=== PATIENT | female | born 1970 | race Caucasian/White ===

== ENCOUNTER 2018-04-16 11:07 | Inpatient (IN) | payer BC, OTHER ==
[2018-04-16 11:52] LABS: ADD MAN DIFF? NO
[2018-04-16 11:53] LABS: WHITE BLOOD COUNT 10.5 10^3/ul (4.8-10.8)
[2018-04-16 11:53] LABS: BASOPHILS % 0.3 % (0.0-2.0); EOSINOPHILS % 0.1 % (0.0-7.0); HEMATOCRIT 23.1 % (37.0-47.0); LYMPHOCYTES % 19.2 % (15.0-51.0); MEAN CORPUSCULAR HEMOGLOBIN 30.3 pg (29.0-33.0); MEAN CORPUSCULAR HGB CONC 34.6 g/dl (32.0-37.0); MEAN CORPUSCULAR VOLUME 87.5 fl (82.0-101.0); MEAN PLATELET VOLUME 9.3 fl (7.4-10.4); MONOCYTE # 0.4 10^3/ul (0.3-0.9); NEUTROPHIL # 7.9 10^3/ul (1.6-7.5); NEUTROPHILS % 75.3 % (39.0-77.0); PLATELET COUNT 405 10^3/UL (140-415); RED BLOOD COUNT 2.64 10^6/ul (4.20-5.40); RED CELL DISTRIBUTION WIDTH 11.9 % (11.5-14.5)
[2018-04-16 12:12] LABS: INR 1.01; PROTIME 13.4 Sec (11.9-14.9)
[2018-04-16 12:14] LABS: ANION GAP 8 (5-13); BLOOD UREA NITROGEN 28 mg/dl (7-20); CARBON DIOXIDE 25 mmol/L (21-31); CHLORIDE 100 mmol/L (97-110); CREATININE 0.53 mg/dl (0.44-1.00); Estimated GFR > 60 mL/min (>60); GLUCOSE 177 mg/dl (70-220); POTASSIUM 3.3 mmol/L (3.5-5.1); SODIUM 133 mmol/L (135-144)
[2018-04-16 12:26] LABS: TROPONIN-I < 0.012 ng/ml (0.000-0.120)
[2018-04-16 12:44] LABS: OCCULT BLOOD STOOL POSITIVE (NEGATIVE)
[2018-04-16 12:51] LABS: LIPASE 55 U/L (23-300)
[2018-04-16 13:11] LABS: ALANINE AMINOTRANSFERASE 25 IU/L (13-69); ALKALINE PHOSPHATASE 66 IU/L (42-121); ASPARTATE AMINO TRANSFERASE 17 IU/L (15-46); TOTAL PROTEIN 5.5 g/dl (6.1-8.1)
[2018-04-16] MEDS ORDERED: ONDANSETRON 4 MG INJ IV (13:30)
[2018-04-16] MEDS ORDERED: NACL 0.9% 3 ML SYG IV (15:30)
[2018-04-16] MEDS ORDERED: HYDROCODONE/APAP (5/325) TAB PO (15:30)
[2018-04-16] MEDS: PANTOPRAZOLE 40 MG INJ IV (16:18)
[2018-04-16 16:55] LABS: HEMATOCRIT 22.6 % (37.0-47.0); HEMOGLOBIN 7.8 g/dl (12.0-16.0)
[2018-04-16 17:16] LABS: IRON 32 ug/dl (35-150)
[2018-04-16 17:25] LABS: % IRON SATURATION 10 % SAT (22-52); TOTAL IRON BINDING CAPACITY 317 ug/dl (241-421)
[2018-04-16 17:51] LABS: FERRITIN 32.3 ng/ml (11.1-264.0)
[2018-04-16] MEDS: ACETAMINOPHEN 325 MG TAB PO (20:11)
[2018-04-17] MEDS: PANTOPRAZOLE 40 MG INJ IV ×2 (06:00→17:51)
[2018-04-17 06:08] LABS: ADD MAN DIFF? NO
[2018-04-17 06:18] LABS: BASOPHILS % 0.5 % (0.0-2.0); EOSINOPHILS % 0.3 % (0.0-7.0); HEMATOCRIT 20.2 % (37.0-47.0); LYMPHOCYTES # 2.3 10^3/ul (0.8-2.9); LYMPHOCYTES % 31.2 % (15.0-51.0); MEAN CORPUSCULAR HEMOGLOBIN 30.2 pg (29.0-33.0); MEAN CORPUSCULAR HGB CONC 34.7 g/dl (32.0-37.0); MEAN CORPUSCULAR VOLUME 87.1 fl (82.0-101.0); MEAN PLATELET VOLUME 9.7 fl (7.4-10.4); MONOCYTE # 0.4 10^3/ul (0.3-0.9); MONOCYTES % 5.9 % (0.0-11.0); NEUTROPHIL # 4.5 10^3/ul (1.6-7.5); NEUTROPHILS % 60.9 % (39.0-77.0); PLATELET COUNT 334 10^3/UL (140-415); RED BLOOD COUNT 2.32 10^6/ul (4.20-5.40); RED CELL DISTRIBUTION WIDTH 11.9 % (11.5-14.5)
[2018-04-17 06:18] LABS: WHITE BLOOD COUNT 7.4 10^3/ul (4.8-10.8)
[2018-04-17 06:54] LABS: ANION GAP 6 (5-13); BLOOD UREA NITROGEN 13 mg/dl (7-20); CALCIUM 8.7 mg/dl (8.4-10.2); CARBON DIOXIDE 28 mmol/L (21-31); CHLORIDE 102 mmol/L (97-110); CREATININE 0.58 mg/dl (0.44-1.00); Estimated GFR > 60 mL/min (>60); GLUCOSE 107 mg/dl (70-220); POTASSIUM 4.2 mmol/L (3.5-5.1); SODIUM 136 mmol/L (135-144)
[2018-04-17 06:54] LABS: C-REACTIVE PROTEIN 1.4 mg/dl (0.0-0.9)
[2018-04-17 07:05] LABS: HEMOGLOBIN A1C 5.8 % (0-5.9)
[2018-04-17 08:03] LABS: ERYTHROCYTE SEDIMENTATION RATE 29 mm/Hr (0-30)
[2018-04-17] MEDS ORDERED: EPHEDrine SULFATE 50 MG/5 ML SYG IV (13:00)
[2018-04-17] MEDS ORDERED: hydrALAzine 20 MG INJ IV (13:00)
[2018-04-17] MEDS ORDERED: FENTAnyl 50 MCG/ML VIAL IV (13:00)
[2018-04-17] MEDS ORDERED: LABETALOL HCL 20MG INJ IV (13:00)
[2018-04-17] MEDS: SOD FERRIC GLUC COMPLX 125 MG in SOD CHLORIDE 0.9% 100 ML IVPB (14:37)
[2018-04-17] MEDS: SUCRALFATE (100 MG/ML) 10ML CUP PO ×3 (14:38→20:53)
[2018-04-17] MEDS: PROPOFOL 20 ML (15:28)
[2018-04-17] MEDS: BARIUM SULF 2% 450 ML BTL (BERRY SMOOTHIE) PO (17:59)
[2018-04-17] MEDS: SOD CHLORIDE 0.9% 100 ML (20:30)
[2018-04-17] MEDS: IOHEXOL 300MG/ML 150 ML BTL (20:30)
[2018-04-18] MEDS: PANTOPRAZOLE 40 MG INJ IV ×2 (06:30→17:46)
[2018-04-18 08:19] LABS: ADD MAN DIFF? NO
[2018-04-18 08:29] LABS: WHITE BLOOD COUNT 6.4 10^3/ul (4.8-10.8)
[2018-04-18 08:29] LABS: ABNORMAL IP MESSAGE 1; BASOPHIL # 0.1 10^3/ul (0.0-0.1); BASOPHILS % 0.9 % (0.0-2.0); EOSINOPHILS # 0.1 10^3/ul (0.0-0.5); EOSINOPHILS % 1.6 % (0.0-7.0); HEMATOCRIT 19.2 % (37.0-47.0); LYMPHOCYTES # 2.5 10^3/ul (0.8-2.9); LYMPHOCYTES % 39.4 % (15.0-51.0); MEAN CORPUSCULAR HEMOGLOBIN 30.2 pg (29.0-33.0); MEAN CORPUSCULAR HGB CONC 33.3 g/dl (32.0-37.0); MEAN CORPUSCULAR VOLUME 90.6 fl (82.0-101.0); MEAN PLATELET VOLUME 9.6 fl (7.4-10.4); MONOCYTE # 0.4 10^3/ul (0.3-0.9); MONOCYTES % 5.5 % (0.0-11.0); NEUTROPHIL # 3.3 10^3/ul (1.6-7.5); NEUTROPHILS % 51.7 % (39.0-77.0); PLATELET COUNT 344 10^3/UL (140-415); RED BLOOD COUNT 2.12 10^6/ul (4.20-5.40); RED CELL DISTRIBUTION WIDTH 12.1 % (11.5-14.5)
[2018-04-18 08:43] LABS: POSITIVE DIFF @See below
[2018-04-18 08:46] LABS: HEMOGLOBIN 6.4 g/dl (12.0-16.0); PATH REVIEW? YES
[2018-04-18] MEDS: SUCRALFATE (100 MG/ML) 10ML CUP PO ×4 (09:09→22:25)
[2018-04-18 10:19] LABS: ANISOCYTOSIS 1+ (0-0); BAND NEUTROPHILS % (M) 1 % (0-4); EOSINOPHILS % (M) 1 % (0-7); LYMPHOCYTES #M 2.8 10^3/ul (0.8-2.9); LYMPHOCYTES % (M) 44 % (15-51); MONOCYTE #M 0.1 10^3/ul (0.3-0.9); MONOCYTES % (M) 3 % (0-11); OVALOCYTES 1+ (0-0); PLATELET ESTIMATE NORMAL; POLYCHROMASIA 1+ (0-0); SEG NEUT #M 3.3 10^3/ul (1.6-7.5); SEGMENTED NEUTROPHILS (M) % 51 % (39-77); SMUDGE%M 26 % (0-0)
[2018-04-18 12:34] LABS: IMMEDIATE SPIN CROSSMATCH 1 2
[2018-04-18] MEDS: SOD FERRIC GLUC COMPLX 125 MG in SOD CHLORIDE 0.9% 100 ML IVPB ×2 (13:00→16:32)
[2018-04-19] MEDS: PANTOPRAZOLE 40 MG INJ IV (05:54)
[2018-04-19 06:13] LABS: ADD MAN DIFF? NO; BASOPHIL # 0.1 10^3/ul (0.0-0.1); BASOPHILS % 1.2 % (0.0-2.0); EOSINOPHILS # 0.1 10^3/ul (0.0-0.5); EOSINOPHILS % 1.6 % (0.0-7.0); HEMATOCRIT 26.7 % (37.0-47.0); HEMOGLOBIN 9.3 g/dl (12.0-16.0); LYMPHOCYTES % 34.9 % (15.0-51.0); MEAN CORPUSCULAR HEMOGLOBIN 29.7 pg (29.0-33.0); MEAN CORPUSCULAR HGB CONC 34.8 g/dl (32.0-37.0); MEAN CORPUSCULAR VOLUME 85.3 fl (82.0-101.0); MEAN PLATELET VOLUME 9.4 fl (7.4-10.4); MONOCYTE # 0.4 10^3/ul (0.3-0.9); MONOCYTES % 6.5 % (0.0-11.0); NEUTROPHIL # 3.1 10^3/ul (1.6-7.5); NEUTROPHILS % 55.1 % (39.0-77.0); PLATELET COUNT 309 10^3/UL (140-415); RED BLOOD COUNT 3.13 10^6/ul (4.20-5.40); RED CELL DISTRIBUTION WIDTH 13.3 % (11.5-14.5)
[2018-04-19 06:13] LABS: WHITE BLOOD COUNT 5.7 10^3/ul (4.8-10.8)
[2018-04-19 07:04] LABS: ANION GAP 5 (5-13); BLOOD UREA NITROGEN 5 mg/dl (7-20); CALCIUM 8.9 mg/dl (8.4-10.2); CARBON DIOXIDE 28 mmol/L (21-31); CHLORIDE 106 mmol/L (97-110); CREATININE 0.56 mg/dl (0.44-1.00); Estimated GFR > 60 mL/min (>60); GLUCOSE 106 mg/dl (70-220); POTASSIUM 3.3 mmol/L (3.5-5.1); SODIUM 139 mmol/L (135-144)
[2018-04-19] MEDS: SUCRALFATE (100 MG/ML) 10ML CUP PO ×2 (09:01→13:20)
[2018-04-19] MEDS: POTASSIUM CHLORIDE (SR) 20 MEQ TAB PO (11:30)
[2018-04-19] MEDS: SOD FERRIC GLUC COMPLX 125 MG in SOD CHLORIDE 0.9% 100 ML IVPB (13:15)
== END 2018-04-19 15:50 | disposition home or self-care (01) | DRG 811 ==
LOC: E/R 11:07 → TEL 13:19
PROVIDERS: Pediatrics
PROC: 0DB68ZX Excision of Stomach, Via Natural or Artificial Opening Endoscopic, Diagnostic (ICD-10-PCS; principal; 2018-04-17 12:14)
PROC: 30233N1 Transfusion of Nonautologous Red Blood Cells into Peripheral Vein, Percutaneous Approach (ICD-10-PCS; 2018-04-17 12:14)
DX: D62 Acute posthemorrhagic anemia (principal); K26.0 Acute duodenal ulcer with hemorrhage; R55 Syncope and collapse; K29.00 Acute gastritis without bleeding; E87.6 Hypokalemia
CPT/HCPCS: 36415; 36430; 70450; 71045; 72072; 72100; 72125; 74177; 80048; 80076; 82270; 82728; 82941; 83036; 83540; 83690; 84484; 85014; 85018; 85025; 85610; 85651; 85730; 86140; 86850; 86900; 86901; 86920; 88305; 88312; 93005; 99291-25

== ENCOUNTER 2018-07-29 11:40 | Day surgery (SDC) | payer BC ==
[2018-07-29] MEDS ORDERED: PROPOFOL 20 ML ×2 (15:03→15:25)
== END 2018-07-29 16:51 | disposition home or self-care (01) ==
LOC: GIL 11:40
DX: Z12.11 Encounter for screening for malignant neoplasm of colon (principal); K29.50 Unspecified chronic gastritis without bleeding; K64.8 Other hemorrhoids; K26.9 Duodenal ulcer, unspecified as acute or chronic, without hemorrhage or perforation
CPT/HCPCS: 43239; 88305; 88312